=== PATIENT | male | born 1975 | race Caucasian/White ===

== ENCOUNTER 2017-05-31 16:13 | Emergency (ER) | payer SELFPAY ==
[2017-05-31] MEDS ORDERED: Fluorescein Opthalmic Strip ONE (16:21)
== END 2017-05-31 17:17 | disposition home or self-care (01) ==
LOC: BURERS 16:13
DX: S05.02XA Injury of conjunctiva and corneal abrasion without foreign body, left eye, initial encounter (principal); F17.210 Nicotine dependence, cigarettes, uncomplicated
CPT/HCPCS: 99283

== ENCOUNTER 2017-07-08 23:57 | Emergency (ER) | payer SELFPAY | END 2017-07-09 00:29 | disposition home or self-care (01) | LOC: BURERS 23:57 | DX: T16.2XXA Foreign body in left ear, initial encounter (principal); F17.210 Nicotine dependence, cigarettes, uncomplicated | CPT/HCPCS: 69200 ==

== ENCOUNTER 2018-01-16 23:08 | Emergency (ER) | payer OTHER, SELFPAY ==
[2018-01-16 23:42] LABS: #Basophils 0.1 thou/uL (0.0-0.2); #Eosinphils 0.2 thou/uL (0.0-0.7); #Lymphocytes 3.2 thou/uL (1.20-3.40); #Monocytes 0.9 thou/uL (0.11-0.59); #Neutrophils 8.3 thou/uL (1.40-6.50); %Basophils 0.9 % (0.0-1.0); %Eosinophils 1.5 % (0.0-10.0); %Lymphocytes 25.2 % (21.0-51.0); %Monocytes 7.3 % (0.0-10.0); %Neutrophils 65.1 % (42.0-75.0); Hemoglobin 13.2 g/dL (14.0-18.0); Mean Corpuscular HGB CONC 35.7 g/dL (32.0-36.0); Mean Corpuscular Hemoglobin 28.9 pg (27.0-31.0); Mean Corpuscular Volume 81.1 fL (78.0-98.0); Mean Platelet Volume 4.3 fL (7.4-10.4); Platelet Count 589 thou/uL (130-400); RBC Distribution Width 12.3 % (11.5-14.5); Red Blood Cell (RBC) Count 4.55 mill/uL (4.70-6.10); White Blood Cell (WBC) Count 12.8 thou/uL (4.8-10.8)
--- NOTE | 2018-01-17 07:13 | RAD ---
LEFT LEG TWO VIEWS: 01/16/2018 FINDINGS: The patient has had recent fractures of the tibia and fibula shafts. Higher films were not available for comparison. An intramedullary sekou has been placed, which reduces the tibial fracture. It is in good alignment. The postop appearance is as expected. The fibula is broken in two places, one at the neck, which is nondisplaced, and one at the junction of the middle and distal thirds, which shows slight displacemen t of fragments. IMPRESSION: Posttraumatic findings. Without the old films, I cannot comment on any changes since the patient's s urgery. There are no bony findings of concern that would explain increased pain. POS: HOME
== END 2018-01-17 01:50 | disposition home or self-care (01) ==
LOC: BURERS 23:08
DX: L03.116 Cellulitis of left lower limb (principal); M96.840 Postprocedural hematoma of a musculoskeletal structure following a musculoskeletal system procedure; F17.210 Nicotine dependence, cigarettes, uncomplicated
CPT/HCPCS: 10180; 85025; 87070; 87205; 96365; 96375